=== PATIENT | female | born 1945 | race Caucasian/White ===

== ENCOUNTER 2017-02-18 16:14 | Emergency (ER) | payer OTHER ==
[2017-02-18 16:45] VITALS: RESP 18; TEMP 98.1
--- NOTE | 2017-02-18 17:06 | EDPHY ---
H & P Time Seen by Provider: 02/18/17 17:05 HPI/ROS: Chief complaint. Dizzy HPI. 72-year-old female presents emergency department dizziness that she describes as being lightheaded for the last 4-5 days. Slight nausea. Urinary frequency and some blood in her urine. She feels tired. Otherwise not sick in no fever. She had some visual change 2 weeks ago that was transient. She saw an cage supervisor since for that and was told she was fine and she has not had any recurrence. She has had no chest discomfort or trouble breathing. No abdominal pain or vomiting. Normal movement arms legs. No similar symptoms previously. ROS Constitutional. no fever/chills, no weakness Eyes. no problems with vision ENT. no sore throat, no nasal drainage Cardiovascular. no chest pain Respiratory. no shortness of breath, no cough Abdominal. no abdominal pain, no nausea/vomiting, no diarrhea . no problems urinating MS. no calf pain/swelling, no neck/back pain, no joint pain Skin. no rash Lymph. no swollen glands Neuro. Dizziness Past Medical/Surgical History: Past medical history cholecystectomy and hysterectomy. She tells me she had a stress test 10 years ago and was told"you're fine". Social History: , nonsmoker, no alcohol Smoking Status: Never smoked Physical Exam: General Appearance: Alert pleasant well-developed female no distress vital signs are stay Eyes: Pupils equal and round no pallor or injection. ENT, Mouth: Mucous membranes are moist. Respiratory: There are no retractions, lungs are clear to auscultation. Cardiovascular: Regular rate and rhythm. Gastrointestinal: Abdomen is soft and nontender, no masses, bowel sounds normal. Neurological: Awake and alert, sensory and motor exams grossly normal. Skin: Warm and dry, no rashes. Musculoskeletal: Neck is supple nontender. Extremities symmetrical, full range of motion. Psychiatric: Patient is oriented X 3, there is no agitation. Constitutional: Initial Vital Signs Temperature (C) 36.7 C 02/18/17 16:25 Heart Rate 75 02/18/17 16:25 Respiratory Rate 18 02/18/17 16:25 Blood Pressure 121/80 H 02/18/17 16:25 O2 Sat (%) 96 02/18/17 16:25 O2 Delivery Mode Room Air Allergies/Adverse Reactions: No Known Allergies Allergy (Unverified 02/18/17 16:45) Home Medications: Medication Instructions Recorded Bioidentical Hormones 02/18/17 Medical Decision Making - Diagnostics EKG Interpretation: EKG interpreted by me shows normal sinus rhythm normal interval and axis. QRS shows diffuse T-wave inversions or flattening in precordial leads as well as leads 3 and AVF. No arrhythmia. No ST elevation or depression. The rate 73 There are no old EKGs for comparison in our system. I also searched core he 0 and have been unable to find an old EKG for comparison Procedures: IV normal saline, monitor ED Course/Re-evaluation: Re-evaluation at 6:10 p.m.. Patient is stable. Again she has no chest discomfort shortness of breath. Her dizziness is better. Patient and I discussed lab imaging and EKG findings as well as the EKG changes that we could not find an old EKG for comparison. She is offered admission however she feels well to go home and follow up as an outpatient. She and I discussed risks and benefits of this and importance of follow-up and encouragement to return over the weekend should she have worsening symptoms. She expresses understanding and agreement Differential Diagnosis: Because of patient's dizziness is not clear. I considered acute coronary syndrome as well as electrolyte abnormality dehydration. She had blood in her urine but her urinalysis is basically normal. She has EKG changes but no chest symptoms. - Data Points Laboratory Results: Laboratory Results 02/18/17 17:28 02/18/17 17:28 02/18/17 02/18/17 02/18/17 17:28 17:28 17:00 WBC 7.12 10^3/uL 10^3/uL (3.80-9.50) RBC 4.86 10^6/uL 10^6/uL (4.18-5.33) Hgb 14.4 g/dL g/dL (12.6-16.3) Hct 42.6 % % (38.0-47.0) MCV 87.7 fL fL (81.5-99.8) MCH 29.6 pg pg (27.9-34.1) MCHC 33.8 g/dL g/dL (32.4-36.7) RDW 12.7 % % (11.5-15.2) Plt Count 231 10^3/uL 10^3/uL (150-400) MPV 10.7 fL fL (8.7-11.7) Neut % (Auto) 56.1 % % (39.3-74.2) Lymph % (Auto) 33.4 % % (15.0-45.0) [place] % (Auto) 8.4 % % (4.5-13.0) Eos % (Auto) 1.0 % % (0.6-7.6) Baso % (Auto) 1.0 % % (0.3-1.7) Nucleat RBC Rel Count 0.0 % % (0.0-0.2) Absolute Neuts (auto) 3.99 10^3/uL 10^3/uL (1.70-6.50) Absolute Lymphs (auto) 2.38 10^3/uL 10^3/uL (1.00-3.00) Absolute Monos (auto) 0.60 10^3/uL 10^3/uL (0.30-0.80) Absolute Eos (auto) 0.07 10^3/uL 10^3/uL (0.03-0.40) Absolute Basos (auto) 0.07 10^3/uL 10^3/uL (0.02-0.10) Absolute Nucleated RBC 0.00 10^3/uL 10^3/uL (0-0.01) Immature Gran % 0.1 % % (0.0-1.1) Immature Gran # 0.01 10^3/uL 10^3/uL (0.00-0.10) Sodium 137 mEq/L mEq/L (134-144) Potassium 4.1 mEq/L mEq/L (3.5-5.2) Chloride 103 mEq/L mEq/L (97-110) Carbon Dioxide 24 mEq/l mEq/l (22-31) Anion Gap 10 mEq/L mEq/L (8-16) BUN 16 mg/dL mg/dL (7-23) Creatinine 0.8 mg/dL mg/dL (0.6-1.0) Estimated GFR > 60 Glucose 78 mg/dL mg/dL (70-100) Calcium 9.6 mg/dL mg/dL (8.5-10.4) Troponin I < 0.012 ng/mL ng/mL (0-0.034) Urine Color PALE YELLOW Urine Appearance HAZY Urine pH 5.0 (5.0-7.5) Ur Specific [place] 1.005 (1.002-1.030) Urine Protein NEGATIVE (NEGATIVE) Urine Ketones NEGATIVE (NEGATIVE) Urine Blood 1+ H (NEGATIVE) Urine Nitrate NEGATIVE (NEGATIVE) Urine Bilirubin NEGATIVE (NEGATIVE) Urine Urobilinogen NEGATIVE EU EU (0.2-1.0) Ur Leukocyte Esterase NEGATIVE (NEGATIVE) Urine RBC 1-3 /hpf /hpf (0-3) Urine WBC 1-3 /hpf /hpf (0-3) Ur Epithelial Cells TRACE /lpf /lpf (NONE-1+) Urine Bacteria 2+ /hpf H /hpf (NONE SEEN) Urine Mucus TRACE /lpf /lpf (NONE-1+) Urine Glucose NEGATIVE (NEGATIVE) Medications Given: Discontinued Medications Sodium Chloride (Ns) 1,000 mls @ 0 mls/hr IV ONCE ONE; Wide Open PRN Reason: Protocol Stop: 02/18/17 17:25 Last Admin: 02/18/17 17:31 Dose: 1,000 mls Departure - Departure Disposition: Home, Routine, Self-Care Clinical Impression: Dizziness Condition: Good Instructions: Dizziness (ED) Additional Instructions: Easy activity the next 2 days. Drink plenty of fluids and eat regular meals. The get good sleep. Return for worsening dizziness, chest discomfort, trouble breathing. Please call Dr. Still's office on Tuesday morning to arrange further evaluation of the changes in the EKG that we found tonight Referrals: Kvng Freire MD [Primary Care Provider] - As per Instructions Joseph Still MD [Medical Doctor] - 2-3 days without fail
[2017-02-18 17:10] LABS: COLOR PALE YELLOW; LEUKOCYTE ESTERASE,URINE NEGATIVE (NEGATIVE); NITRITE,URINE NEGATIVE (NEGATIVE)
--- NOTE | 2017-02-18 17:10 | CPEKG ---
Heart Rate: 73 RR Interval: 822 P-R Interval: 148 QRSD Interval: 84 QT Interval: 384 QTC Interval: 424 P [place]: -11 QRS [place]: 11 T Wave [place]: -26 EKG Severity - ABNORMAL ECG - EKG Impression: SINUS RHYTHM EKG Impression: NONSPECIFIC T ABNORMALITIES, DIFFUSE LEADS Electronically Signed By: Solomon Cisneros 18-Feb-2017 17:12:07
[2017-02-18 17:18] LABS: BACTERIA 2+ /hpf (NONE SEEN); MUCUS TRACE /lpf (NONE-1+)
[2017-02-18] MEDS ORDERED: NS 1,000 ML IV ONE (17:24)
[2017-02-18 17:41] LABS: % IMMATURE GRANULYOCYTES 0.1 % (0.0-1.1); ABSOLUTE IMMATURE GRANULOCYTES 0.01 10^3/uL (0.00-0.10); ADD DIFF? NO; ADD MORPH? NO; ADD SCAN? NO; ATYPICAL LYMPHOCYTE FLAG 0 (0-99); FRAGMENT RBC FLAG 0 (0-99); HEMATOCRIT 42.6 % (38.0-47.0); HEMOGLOBIN 14.4 g/dL (12.6-16.3); LEFT SHIFT FLG 0 (0-99); LIPEMIA HEMOLYSIS FLAG 90 (0-99); MEAN CELL HEMOGLOBIN 29.6 pg (27.9-34.1); MEAN CELL HEMOGLOBIN CONCENTR. 33.8 g/dL (32.4-36.7); MEAN CELL VOLUME 87.7 fL (81.5-99.8); MEAN PLATELET VOLUME 10.7 fL (8.7-11.7); PLATELET CLUMPS FLAG 10 (0-99); PLATELET COUNT 231 10^3/uL (150-400); RED BLOOD CELL COUNT 4.86 10^6/uL (4.18-5.33); RED CELL DISTRIBUTION WIDTH 12.7 % (11.5-15.2)
[2017-02-18 17:51] LABS: ANION GAP 10 mEq/L (8-16); CALCIUM 9.6 mg/dL (8.5-10.4); CARBON DIOXIDE 24 mEq/l (22-31); CHLORIDE 103 mEq/L (97-110); CREATININE 0.8 mg/dL (0.6-1.0); GLOMERULAR FILTRATION RATE > 60; GLUCOSE 78 mg/dL (70-100); POTASSIUM 4.1 mEq/L (3.5-5.2); SODIUM 137 mEq/L (134-144)
[2017-02-18 18:02] LABS: TROPONIN I < 0.012 ng/mL (0-0.034)
[2017-02-18 18:42] VITALS: BP 107/63; PULSE 72; O2SAT 95
== END 2017-02-18 18:51 | disposition home or self-care (01) ==
DX: R42 Dizziness and giddiness (principal)